=== PATIENT | female | born 1960 | race Two or more races ===

== ENCOUNTER → 2023-03-11 | Outpatient (CLI) | payer OTHER ==
[2023-03-11 08:27] LABS: Basophils # (auto) 0.1 10 ^3/uL (0-0.2); Basophils % (auto) 1.3 % (0.0-2.0); Eosinophils # (auto) 0 10 ^3/uL (0-0.8); Eosinophils % (auto) 0.1 % (0.0-7.0); Hematocrit 36.8 % (36.0-46.0); Hemoglobin 12.5 g/dL (12.2-16.2); Lymphocytes # (auto) 1.7 10 ^3/uL (0.4-5.4); Lymphocytes % (auto) 37.7 % (10.0-50.0); Mean Corpuscular Hemoglobin 29.3 pg (28.0-32.0); Mean Corpuscular Volume 86.2 fL (80.0-100.0); Monocytes # (auto) 0.5 10 ^3/uL (0-1.3); Monocytes % (auto) 12.1 % (0.0-12.0); Neutrophils # (auto) 2.2 10 ^3/uL (1.6-8.6); Neutrophils % (auto) 48.8 % (37.0-80.0); Nucleated Red Blood Cells % 0.2 %; Red Blood Cells 4.27 10^6/uL (4.0-5.20); Red Cell Distribution Width 14.3 % (11.8-14.3); White Blood Cell 4.5 10^3/uL (4.4-10.8)
[2023-03-11 08:47] LABS: Urine Bacteria NONE SEEN /hpf (None Seen); Urine Blood Negative /uL (Negative); Urine Mucus FEW (None Seen); Urine Specific Gravity 1.018 (1.001-1.035); Urine WBC <1 /hpf (0 - 5)
[2023-03-11 09:14] LABS: Potassium 4.2 mmol/L (3.5-5.1)
[2023-03-11 09:26] LABS: Albumin 3.3 g/dL (3.4-5.0); Bilirubin, Total 0.4 mg/dL (0.2-1.0); Total Protein 7.4 g/dL (6.4-8.2)
== END | disposition home or self-care (01) ==
LOC: LAB 08:01
PROVIDERS: ATTEND Internal Medicine
DX: E03.9 Hypothyroidism, unspecified (principal); F41.9 Anxiety disorder, unspecified; K21.9 Gastro-esophageal reflux disease without esophagitis
CPT/HCPCS: 36415; 80053; 80061; 81001; 84443; 85025

== ENCOUNTER → 2023-03-18 | Outpatient (CLI) | payer OTHER | END | disposition home or self-care (01) | LOC: LAB 10:33 | PROVIDERS: ATTEND Internal Medicine | DX: E03.9 Hypothyroidism, unspecified (principal) | CPT/HCPCS: 36415; 84443 ==

== ENCOUNTER → 2023-05-11 | Outpatient (CLI) | payer OTHER | END | disposition home or self-care (01) | LOC: LAB 09:17 | PROVIDERS: ATTEND Internal Medicine | DX: E03.9 Hypothyroidism, unspecified (principal) | CPT/HCPCS: 36415; 83036; 84443 ==

== ENCOUNTER → 2023-08-10 | Outpatient (CLI) | payer OTHER | END | disposition home or self-care (01) | LOC: LAB 10:19 | PROVIDERS: ATTEND Internal Medicine | DX: E03.9 Hypothyroidism, unspecified (principal) | CPT/HCPCS: 36415; 84443 ==

== ENCOUNTER → 2023-09-21 | Outpatient (CLI) | payer OTHER | END | disposition home or self-care (01) | LOC: LAB 11:06 | PROVIDERS: ATTEND Internal Medicine | DX: E03.9 Hypothyroidism, unspecified (principal) | CPT/HCPCS: 36415; 84443 ==

== ENCOUNTER 2023-10-21 09:48 | Day surgery (SDC) | payer OTHER ==
[2023-10-18 14:37] LABS: Basophils # (auto) 0 10 ^3/uL (0-0.2); Basophils % (auto) 0.9 % (0.0-2.0); Eosinophils # (auto) 0.1 10 ^3/uL (0-0.8); Eosinophils % (auto) 1.9 % (0.0-7.0); Hemoglobin 12.4 g/dL (12.2-16.2); Lymphocytes # (auto) 1.6 10 ^3/uL (0.4-5.4); Lymphocytes % (auto) 39.9 % (10.0-50.0); Mean Corpuscular Hemoglobin 28.9 pg (28.0-32.0); Mean Corpuscular Hgb Conc. 33.4 g/dL (32.0-36.0); Mean Corpuscular Volume 86.4 fL (80.0-100.0); Monocytes # (auto) 0.5 10 ^3/uL (0-1.3); Monocytes % (auto) 12.5 % (0.0-12.0); Neutrophils # (auto) 1.8 10 ^3/uL (1.6-8.6); Neutrophils % (auto) 44.8 % (37.0-80.0); Nucleated Red Blood Cells % 0.1 %; Red Blood Cells 4.28 10^6/uL (4.0-5.20); Red Cell Distribution Width 14.1 % (11.8-14.3); White Blood Cell 4.1 10^3/uL (4.4-10.8)
[2023-10-18 14:54] LABS: INR 0.97 (0.9-1.15); Partial Thromboplastin Time 27.1 SEC (24.5-34.5); Prothrombin Time 10.2 sec (9.3-11.8)
[2023-10-18 15:29] LABS: Alanine Aminotransferase 28 U/L (7-40); Albumin 4.2 g/dL (3.2-4.8); Alkaline Phosphatase 94 U/L (46-116); Anion Gap 1 (5-15); Aspartate Aminotransferase 25 U/L (13-40); BUN/Creatinine Ratio 10.4 (10.0-20.0); Bilirubin, Total 0.5 mg/dL (0.2-1.0); Blood Urea Nitrogen 11 mg/dL (9-23); Calcium 9.2 mg/dL (8.5-10.1); Carbon Dioxide 30 mmol/L (20-30); Chloride 107 mmol/L (98-107); Glucose 89 mg/dL (74-106); Sodium 138 mmol/L (136-145); Total Protein 6.7 g/dL (5.7-8.2)
[~2023-10-21] VITALS: Ht 152.4 cm; Wt 64.9 kg
[~2023-10-21 09:48] MED LIST: ESCI20TA PO; FAMO-68 PO; LEVO75TA6 PO
[2023-10-21] MEDS ORDERED: SODIUM CHLORIDE LOCK 10 ML ONE (10:19)
[2023-10-21] MEDS ORDERED: LIDOCAINE VISCOUS 2% 15ML UD ONE (10:20)
[2023-10-26 14:28] VITALS: O2SAT 100
[2023-10-26] MEDS: diphenhdrAMINE HCL 50 MG/1 ML VL ONE (14:30)
[2023-10-26] MEDS: MIDAZOLAM HCL 5 MG/ML-1ML VIAL ONE (14:30)
[2023-10-26] MEDS: fentaNYL CITRATE 100 MCG/2 ML VL ONE (14:30)
[2023-10-26 15:03] VITALS: PULSE 79; RESP 15; TEMP 97.8; O2SAT 99
[2023-10-26 15:45] VITALS: BP 117/64; PULSE 63; RESP 15; O2SAT 96
== END 2023-10-21 14:00 | disposition home or self-care (01) ==
LOC: GI 09:48
PROVIDERS: ATTEND Internal Medicine Gastroenterology
DX: K21.00 Gastro-esophageal reflux disease with esophagitis, without bleeding (principal); K44.9 Diaphragmatic hernia without obstruction or gangrene; K29.50 Unspecified chronic gastritis without bleeding; K25.9 Gastric ulcer, unspecified as acute or chronic, without hemorrhage or perforation; F41.9 Anxiety disorder, unspecified; F32.9 Major depressive disorder, single episode, unspecified; Z90.710 Acquired absence of both cervix and uterus; Z98.890 Other specified postprocedural states
CPT/HCPCS: 36415; 43239; 80053; 85025; 85610; 85730; J1200; J2250; J3010

== ENCOUNTER 2023-10-26 10:57 | Day surgery (SDC) | payer OTHER ==
[2023-10-21 12:07] VITALS: O2SAT 99
[2023-10-21 12:31] VITALS: PULSE 71; RESP 14; O2SAT 93
[2023-10-21 13:40] VITALS: BP 126/60; PULSE 59; RESP 12; O2SAT 93
[~2023-10-26] VITALS: Ht 152.4 cm; Wt 64.9 kg
[2023-10-26] MEDS ORDERED: SODIUM CHLORIDE LOCK 10 ML ONE (11:31)
[2023-10-26] MEDS ORDERED: MIDAZOLAM HCL 5 MG/ML-1ML VIAL ONE (11:31)
[2023-10-26] MEDS ORDERED: diphenhdrAMINE HCL 50 MG/1 ML VL ONE (11:32)
[2023-10-26] MEDS ORDERED: fentaNYL CITRATE 100 MCG/2 ML VL ONE ×2 (11:32→14:49)
== END 2023-10-26 16:00 | disposition home or self-care (01) ==
LOC: GI 10:57
PROVIDERS: ATTEND Internal Medicine Gastroenterology
DX: R19.4 Change in bowel habit (principal); K57.30 Diverticulosis of large intestine without perforation or abscess without bleeding; K63.5 Polyp of colon
CPT/HCPCS: 45385; 88305; 88312; 88342; J1200; J2250; J3010; J7030

== ENCOUNTER → 2024-07-10 | Outpatient (CLI) | payer OTHER ==
[2024-07-10 10:01] LABS: Basophils # (auto) 0.1 10 ^3/uL (0-0.2); Basophils % (auto) 1.4 % (0.0-2.0); Eosinophils # (auto) 0.2 10 ^3/uL (0-0.8); Hemoglobin 11.7 g/dL (12.2-16.2); Lymphocytes # (auto) 1.4 10 ^3/uL (0.4-5.4); Lymphocytes % (auto) 31.4 % (10.0-50.0); Mean Corpuscular Hemoglobin 28.2 pg (28.0-32.0); Mean Corpuscular Hgb Conc. 33.4 g/dL (32.0-36.0); Mean Corpuscular Volume 84.5 fL (80.0-100.0); Monocytes # (auto) 0.6 10 ^3/uL (0-1.3); Monocytes % (auto) 12.9 % (0.0-12.0); Neutrophils # (auto) 2.3 10 ^3/uL (1.6-8.6); Neutrophils % (auto) 50.3 % (37.0-80.0); Nucleated Red Blood Cells % 0.2 %; Platelet Count (auto) 267 10^3/uL (140-450); Red Blood Cells 4.14 10^6/uL (4.0-5.20); Red Cell Distribution Width 14.9 % (11.8-14.3); White Blood Cell 4.6 10^3/uL (4.4-10.8)
[2024-07-10 10:53] LABS: Alanine Aminotransferase 12 U/L (7-40); Alkaline Phosphatase 89 U/L (46-116); Anion Gap 5 (5-15); Aspartate Aminotransferase 14 U/L (13-40); BUN/Creatinine Ratio 11.4 (10.0-20.0); Bilirubin, Total 0.5 mg/dL (0.2-1.0); Blood Urea Nitrogen 13 mg/dL (9-23); Calcium 9.4 mg/dL (8.7-10.4); Carbon Dioxide 30 mmol/L (20-31); Chloride 104 mmol/L (98-107); Cholesterol 162 mg/dL (< 200); Glucose 90 mg/dL (74-106); HDL Cholesterol 56 mg/dL (40-59); LDL Cholesterol 96 mg/dL (< 100); Sodium 139 mmol/L (136-145); Total Protein 7.1 g/dL (5.7-8.2); Triglycerides 61 mg/dL (< 150)
== END | disposition home or self-care (01) ==
LOC: LAB 09:31
PROVIDERS: ATTEND Internal Medicine
DX: E03.9 Hypothyroidism, unspecified (principal); N18.31 Chronic kidney disease, stage 3a; D72.819 Decreased white blood cell count, unspecified
CPT/HCPCS: 36415; 80053; 80061; 84443; 85025

== ENCOUNTER → 2024-07-27 | Outpatient (CLI) | payer OTHER | END | disposition home or self-care (01) | LOC: LAB 11:06 | PROVIDERS: ATTEND Internal Medicine | DX: R06.02 Shortness of breath (principal) | CPT/HCPCS: 83880 ==

== ENCOUNTER → 2024-10-09 | Outpatient (CLI) | payer OTHER ==
[2024-10-09 10:55] LABS: Anion Gap 9 (5-15); Calcium 9.5 mg/dL (8.7-10.4); Carbon Dioxide 25 mmol/L (20-31); Chloride 106 mmol/L (98-107); Potassium 4.3 mmol/L (3.5-5.1); Sodium 140 mmol/L (136-145)
[2024-10-09 11:01] LABS: Blood Urea Nitrogen 16 mg/dL (9-23); Glucose 95 mg/dL (74-106)
== END | disposition home or self-care (01) ==
LOC: LAB 09:31
PROVIDERS: ATTEND Internal Medicine
DX: H81.10 Benign paroxysmal vertigo, unspecified ear (principal); N18.9 Chronic kidney disease, unspecified; D63.8 Anemia in other chronic diseases classified elsewhere; R06.02 Shortness of breath
CPT/HCPCS: 36415; 80048; 83880; 84443

== ENCOUNTER 2025-05-01 09:18 | Outpatient (CLI) | payer OTHER ==
[2025-05-01 10:19] LABS: Urine Protein, UAD Negative (Negative); Urine WBC Clumps PRESENT /hpf (None Seen)
== END 2025-05-01 17:00 | disposition home or self-care (01) ==
LOC: LAB 09:18
PROVIDERS: ATTEND Internal Medicine
DX: E03.9 Hypothyroidism, unspecified (principal); D64.9 Anemia, unspecified; Z12.11 Encounter for screening for malignant neoplasm of colon; Z00.00 Encounter for general adult medical examination without abnormal findings
CPT/HCPCS: 36415; 81001; 83036; 84443

== ENCOUNTER 2025-07-17 10:15 | Outpatient (CLI) | payer OTHER ==
[2025-07-17 10:55] LABS: Hematocrit 34.3 % (36.0-46.0); Hemoglobin 11.7 g/dL (12.2-16.2); Mean Corpuscular Hemoglobin 27.8 pg (28.0-32.0); Mean Corpuscular Volume 81.7 fL (80.0-100.0); Nucleated Red Blood Cells % 0.1 %
[2025-07-17 10:57] LABS: Urine Protein, UAD TRACE (Negative)
[2025-07-17 11:34] LABS: Alanine Aminotransferase 13 U/L (7-40); Alkaline Phosphatase 92 U/L (46-116); Anion Gap 10 (5-15); BUN/Creatinine Ratio 7.4 (10.0-20.0); Calcium 8.8 mg/dL (8.7-10.4); Carbon Dioxide 29 mmol/L (20-31); Chloride 104 mmol/L (98-107); Glucose 91 mg/dL (74-106); Potassium 3.5 mmol/L (3.5-5.1); Sodium 143 mmol/L (136-145); Total Protein 7.3 g/dL (5.7-8.2); Triglycerides 98 mg/dL (< 150)
[2025-07-17 11:35] LABS: Albumin 4.2 g/dL (3.2-4.8); Bilirubin, Total 0.3 mg/dL (0.2-1.0); Cholesterol 162 mg/dL (< 200); HDL Cholesterol 52 mg/dL (40-59)
[2025-07-17 11:38] LABS: Blood Urea Nitrogen 9 mg/dL (9-23)
[2025-07-18 14:07] LABS: Anti-Nuclear Antibody Direct Negative (Negative)
== END 2025-07-17 17:00 | disposition home or self-care (01) ==
LOC: LAB 10:15
PROVIDERS: ATTEND Internal Medicine
DX: N18.31 Chronic kidney disease, stage 3a (principal); E03.9 Hypothyroidism, unspecified
CPT/HCPCS: 36415; 80053; 80061; 81001; 85025; 85652; 86038; 86431